=== PATIENT | female | born 1975 | race Caucasian/White ===

== ENCOUNTER → 2017-10-29 16:48 | Outpatient (CLI) | payer OTHER, SELFPAY ==
--- NOTE | 2017-10-29 16:53 | DI.MRI.S_ITS ---
PROCEDURE: MR CERVICAL SPINE WO CON INDICATIONS: CERVICAL SPINE RADICULOPATHY TECHNIQUE: Noncontrast sagittal T1 spin echo and T2 fast spin echo, sagittal STIR, foraminal oblique sagittal T2 fast spin echo, and axial gradient echo or T2 fast spin echo through the cervical spine. COMPARISON: [facility] [place], CR, XR CERVICAL SPINE 2 OR 3 VIEWS, 10/17/2017, 8:39. FINDINGS: Image quality: Excellent. Alignment and Curvature: There is normal bony alignment. There is straightening of normal cervical spine curvature. Bone Marrow: Reactive endplate change is noted adjacent to the C5-C6 disc. Spinal Cord: Visualized spinal cord has normal size and signal. No cerebellar tonsillar herniation. Paraspinous Soft Tissues: No paravertebral masses. Prevertebral soft tissues are normal in thickness. C2-C3: Normal appearance. C3-C4: Normal appearance. C4-C5: Normal appearance. C5-C6: Loss of disc signal and height. Mild, diffuse disc bulge with small central disc protrusion. Moderate narrowing of the central canal. Mild right and moderate left uncovertebral joint hypertrophy. Moderate right and mild left neural foraminal narrowing. No neural impingement. C6-C7: Loss of disc signal. Mild, diffuse disc bulge. Mild narrowing of the central canal. Mild bilateral facet hypertrophy. No neural foraminal narrowing. No neural impingement. C7-T1: Disc is normal in appearance. Mild bilateral facet hypertrophy. IMPRESSION: 1. Moderate C5-C6 degenerative disc disease. Mild C6-C7 degenerative disc disease. 2. Mild bilateral C6-C7 and C7-T1 facet arthropathy. 3. Moderate right and mild left C5-C6 uncovertebral joint hypertrophy. 4. Moderate C5-C6 central canal narrowing. Mild C6-C7 central canal narrowing. 5. Moderate right and mild left C5-C6 neural foraminal narrowing. Dictated by: Merly Schmidt MD, PhD on 10/30/2017 at 12:08 Approved by: Merly Schmidt MD, PhD on 10/30/2017 at 12:20
== END ==
PROVIDERS: Visit Provider Orthopaedic Surgery Orthopaedic Surgery of the Spine
DX: M50.122 Cervical disc disorder at C5-C6 level with radiculopathy (principal); M47.22 Other spondylosis with radiculopathy, cervical region; M47.23 Other spondylosis with radiculopathy, cervicothoracic region; M48.02 Spinal stenosis, cervical region
CPT/HCPCS: 72141

== ENCOUNTER → 2017-12-25 11:00 | Outpatient (CLI) | payer OTHER, SELFPAY | DX: Z23 Encounter for immunization (principal) | CPT/HCPCS: 90471; 90686 ==

== ENCOUNTER → 2018-01-15 13:10 | Outpatient (CLI) | payer OTHER, SELFPAY ==
--- NOTE | 2018-01-15 | DI.RAD.S_ITS ---
PROCEDURE: XR CERVICAL SPINE 1V INDICATIONS: DISC PAIN TECHNIQUE: Single lateral view of the cervical spine acquired. COMPARISON: [facility], MR, MR CERVICAL SPINE WO CON, 10/29/2017, 17:16. [facility] [place], CR, XR CERVICAL SPINE 2 OR 3 VIEWS, 10/17/2017, 8:39. FINDINGS: Bones: No fractures or dislocations to the C7 level. There is discectomy and a disc prosthesis at C5-C6. There is straightening of cervical curvature. The alignment is normal. No suspicious bony lesions. Soft tissues: No prevertebral soft tissue swelling. IMPRESSION: Discectomy and disc prosthesis at C5-C6. There is straightening of cervical curvature but normal alignment. Dictated by: Linette See M.D. on 01/15/2018 at 15:15 Approved by: Linette See M.D. on 01/15/2018 at 15:18
== END ==
PROVIDERS: Visit Provider Neurological Surgery
DX: M50.022 Cervical disc disorder at C5-C6 level with myelopathy (principal)
CPT/HCPCS: 72020

== ENCOUNTER → 2018-01-21 12:39 | Outpatient (CLI) | payer OTHER, SELFPAY ==
--- NOTE | 2018-01-21 13:45 | DI.RAD.S_ITS ---
PROCEDURE: XR CERVICAL SPINE 4V OR 5V INDICATIONS: S/P C5-6 TOTAL DISC REPLACEMENT TECHNIQUE: 5 views of the cervical spine were acquired. COMPARISON: [facility], , XR CERVICAL SPINE 1V, 01/15/2018, 13:20. FINDINGS: Bones: No fractures or dislocations to the C7 level. Postsurgical changes related to C5-C6 prosthetic discs. There is mild narrowing of the C7-T1 disc space as before. Mild diffuse facet arthropathy. Straightening of the normal cervical lordosis. No evidence of abnormal motion with flexion and extension lateral views.. There is no change in hardware alignment. No suspicious bony lesions. Soft tissues: Prevertebral soft tissues are normal in thickness. IMPRESSION: Post surgical changes related C5-C6 prosthetic disc. Straightening of the normal cervical lordosis as before. No evidence of abnormal motion with flexion and extension lateral views. Mild C7-T1 disc degeneration. Dictated by: Kaleb Gonzales M.D. on 01/21/2018 at 15:02 Approved by: Kaelb Gonzales M.D. on 01/21/2018 at 15:06
== END ==
PROVIDERS: Visit Provider Neurological Surgery
DX: M50.022 Cervical disc disorder at C5-C6 level with myelopathy (principal); M50.33 Other cervical disc degeneration, cervicothoracic region
CPT/HCPCS: 72050

== ENCOUNTER → 2018-04-08 13:54 | Outpatient (CLI) | payer OTHER, SELFPAY ==
--- NOTE | 2018-04-08 | DI.RAD.S_ITS ---
PROCEDURE: XR CERVICAL SPINE 4V OR 5V INDICATIONS: NECK PAIN TECHNIQUE: 5 views of the cervical spine were acquired. COMPARISON: [facility], CR, XR CERVICAL SPINE 1V, 01/15/2018, 13:20. [facility], MR, MR CERVICAL SPINE WO CON, 10/29/2017, 17:16. [facility] [place], CR, XR CERVICAL SPINE 2 OR 3 VIEWS, 10/17/2017, 8:39. [facility], CR, XR CERVICAL SPINE 4V OR 5V, 01/21/2018, 13:48. FINDINGS: Bones: No fractures or dislocations to the C7-T1 level. No suspicious bony lesions. There is straightening of normal cervical curvature. Prosthetic intervertebral disc is present at C5-6. Disc is intact without evidence of fracture. There is normal range of motion without dynamic instability. Soft tissues: Prevertebral soft tissues are normal in thickness. IMPRESSION: Prosthetic disc as above. Otherwise, mild cervical straightening. Dictated by: Holli Sweeney M.D. on 04/08/2018 at 16:05 Approved by: Holli Sweeney M.D. on 04/08/2018 at 16:07
== END ==
PROVIDERS: Visit Provider Neurological Surgery
DX: M54.2 Cervicalgia (principal); M46.92 Unspecified inflammatory spondylopathy, cervical region
CPT/HCPCS: 72040

== ENCOUNTER → 2018-08-26 10:18 | Outpatient (CLI) | payer OTHER, SELFPAY ==
--- NOTE | 2018-08-26 10:19 | DI.MG.S_ITS ---
BILATERAL DIGITAL SCREENING MAMMOGRAM 3D/2D WITH CAD: 08/26/2018 CLINICAL: Baseline exam. Routine screening. No prior exams were available for comparison. The tissue of both breasts is heterogeneously dense. This may lower the sensitivity of mammography. Current study was also evaluated with a Computer Aided Detection (CAD) system. There are a regional calcifications in the right breast at 12 o'clock anterior depth. No other significant masses, calcifications, or other findings are seen in either breast. IMPRESSION: INCOMPLETE: NEEDS ADDITIONAL IMAGING EVALUATION The regional calcifications in the right breast are indeterminate. Spot magnification views are recommended. This exam was interpreted at Station ID: [id number]. NOTE: For mammograms, a report in lay terms will be sent to the patient. Approximately 15% of breast malignancies will not be visualized mammographically. In the management of a palpable breast mass, a negative mammogram must not discourage biopsy of a clinically suspicious lesion. Electronically Signed By: Camelia hinojosa/cat:08/26/2018 11:27:40 letter sent: Additional Imaging Needed ACR BI-RADS Category 0: Incomplete 3340F
== END ==
PROVIDERS: PCP Registered Nurse; Visit Provider Registered Nurse
DX: Z12.31 Encounter for screening mammogram for malignant neoplasm of breast (principal)
CPT/HCPCS: 77063; 77067

== ENCOUNTER → 2018-09-17 14:42 | Outpatient (CLI) | payer OTHER, SELFPAY ==
--- NOTE | 2018-09-17 14:44 | DI.US.S_ITS ---
ULTRASOUND OF RIGHT BREAST: 09/17/2018 CLINICAL: Additional evaluation requested from prior study. Comparison is made to exams dated: 09/17/2018 mammogram and 08/26/2018 mammogram - [facility]. Color flow and real-time ultrasound of the right breast were performed. Christie scale images of the real-time examination were reviewed. There is 0.9 cm x 0.6 cm x 0.7 cm oval cyst with a smooth internal wall in the right breast at 11 o'clock anterior depth 3 cm from the nipple. This oval cyst is hypoechoic with internal echoes and no posterior acoustic shadowing or enhancement. Color flow imaging demonstrates that there is no vascularity present. There also is 0.5 cm oval cyst in the right breast at 10:30 o'clock anterior depth 3 cm from the nipple. This oval cyst is hypoechoic with internal echoes. Color flow imaging demonstrates that there is no vascularity present. IMPRESSION: SUSPICIOUS OF MALIGNANCY The 0.9 cm x 0.6 cm x 0.7 cm oval cyst in the right breast at 11 o'clock anterior depth likely represents a complicated cyst or cluster of microcysts, and is probably benign. A follow-up ultrasound in 6 months is recommended. The 0.5 cm oval cyst in the right breast at 10:30 o'clock anterior depth most likely is a complicated cyst and is probably benign. A follow-up ultrasound in 6 months is recommended. Of note, patient had suspicious segmental calcifications in the right breast which stereotactic guided biopsy is recommended. This was discussed with the patient by Dr. See. Patient agreed to proceed with the biopsy. This exam was interpreted at Station ID: [id number]. Electronically Signed By: Michael Youssef M.D. aty/:09/18/2018 08:52:58 letter sent: Biopsy Required Ultrasound BI-RADS: 4 Suspicious abnormality
--- NOTE | 2018-09-17 14:44 | DI.MG.S_ITS ---
UNILATERAL RIGHT DIGITAL DIAGNOSTIC MAMMOGRAM 3D/2D WITH ADDITIONAL VIEWS: 09/17/2018 CLINICAL: Additional evaluation requested from prior study. Comparison is made to exam dated: 08/26/2018 [facility]. The tissue of right breast is heterogeneously dense. This may lower the sensitivity of mammography. There is 0.5 cm equal density focal asymmetry in the right breast central to the nipple anterior depth. There also are a regional coarse heterogeneous calcifications in the right breast at 11 o'clock anterior depth. No other significant masses or calcifications are seen in the breast. IMPRESSION: INCOMPLETE: NEEDS ADDITIONAL IMAGING EVALUATION The 0.5 cm equal density focal asymmetry in the right breast central to the nipple anterior depth is indeterminate. An ultrasound is recommended which is scheduled to immediately follow this examination. The regional coarse heterogeneous calcifications in the right breast at 11 o'clock anterior depth are at a low suspicion for malignancy. A stereotactic biopsy is recommended. This exam was interpreted at Station ID: [id number]. NOTE: For mammograms, a report in lay terms will be sent to the patient. Approximately 15% of breast malignancies will not be visualized mammographically. In the management of a palpable breast mass, a negative mammogram must not discourage biopsy of a clinically suspicious lesion. Electronically Signed By: Michael Youssef M.D. aty/:09/17/2018 16:26:43 ACR BI-RADS Category 0: Incomplete 3340F
== END ==
PROVIDERS: PCP Registered Nurse; Visit Provider Registered Nurse
DX: R92.8 Other abnormal and inconclusive findings on diagnostic imaging of breast (principal); R92.1 Mammographic calcification found on diagnostic imaging of breast; N60.01 Solitary cyst of right breast
CPT/HCPCS: 76642; 77065; G0279

== ENCOUNTER → 2022-05-26 14:16 | Outpatient (CLI) | payer OTHER, SELFPAY ==
--- NOTE | 2022-05-26 | DI.MG.S_ITS ---
BILATERAL DIGITAL SCREENING MAMMOGRAM 3D/2D WITH CAD: 05/26/2022 CLINICAL: Routine screening. Comparison is made to exams dated: 08/26/2018 mammogram and 09/17/2018 mammogram - [facility]. Both breasts are heterogeneously dense, which may obscure small masses (category c / 51-75% glandular tissue). Current study was also evaluated with a Computer Aided Detection (CAD) system. There are benign calcifications in the right breast. There also is a biopsy clip in the right breast. No significant masses, calcifications, or other findings are seen in either breast. There has been no significant interval change. IMPRESSION: BENIGN There is no mammographic evidence of malignancy. A 1 year screening mammogram is recommended. Based on the Tyrer Cuzick model (a risk assessment model) the patient's lifetime risk is 14.2% and her 10 year risk is 2.5%. According to the ACR, ACS, and NCCN guidelines, an annual breast MRI exam along with mammogram is recommended if the patient's lifetime risk is 20% or greater. This exam was interpreted at Station ID: [id number]. NOTE: For mammograms, a report in lay terms will be sent to the patient. Approximately 15% of breast malignancies will not be visualized mammographically. In the management of a palpable breast mass, a negative mammogram must not discourage biopsy of a clinically suspicious lesion. Electronically Signed By: Caridad kumar/cat:05/26/2022 17:50:39 letter sent: Normal Exam ACR BI-RADS Category 2: Benign Finding(s) 3342F
== END ==
PROVIDERS: PCP Registered Nurse Diabetes Educator; Referring Provider Registered Nurse Diabetes Educator; Visit Provider Registered Nurse Diabetes Educator
DX: Z12.31 Encounter for screening mammogram for malignant neoplasm of breast (principal)
CPT/HCPCS: 77063; 77067

== ENCOUNTER → 2022-05-29 07:58 | Outpatient (CLI) | payer OTHER, SELFPAY ==
[2022-05-29 08:37] LABS: Hematocrit 41.6 % (36-46); Hemoglobin 14.6 g/dL (12.0-16.0); Mean Corpuscular HGB Conc 35.1 % (30-36); Mean Corpuscular Volume 85.6 fL (80-100); Platelet Count 256 X10^3/uL (150-400); Red Blood Cell Count 4.86 X10^6/uL (4.0-5.2); Red Cell Distribution Width 12.1 % (11.6-14.8); White Blood Cell Count 4.7 X10^3/uL (4.5-11.0)
[2022-05-29 10:20] LABS: Alanine Aminotransferase 79 IU/L (<35); Albumin 4.1 g/dL (3.5-5.0); Albumin Globulin Ratio 1.5 (1.0-2.8); Alkaline Phosphatase 92 U/L (38-126); Aspartate Aminotransferase 51 IU/L (14-36); BUN Creatinine Ratio 14.7 (6-22); Bilirubin Total 0.5 mg/dL (0.2-1.3); Blood Urea Nitrogen 11 mg/dL (7-17); Calcium 9.1 mg/dL (8.4-10.2); Carbon Dioxide 28 mmol/L (22-32); Chloride 103 mmol/L (98-107); Cholesterol 204 mg/dL (140-199); Estimated Glomerular Filt Rate > 60 mL/min (>60); Globulin 2.8 g/dL (1.7-4.1); Glucose 92 mg/dL (70-100); HDL Cholesterol 64 mg/dL (40-60); HEMOLYSIS < 15 (0-50); LDL Cholesterol Calculated 121 mg/dL (<100); Potassium 4.4 mmol/L (3.4-5.1); Sodium 137 mmol/L (137-145); Total Protein 6.9 g/dL (6.3-8.2); Triglycerides 96 mg/dL (35-150)
[2022-05-29 10:34] LABS: Follicle Stimulating Hormone 50.8 mIU/mL
[2022-05-30 05:14] LABS: TSH w/ Reflex to FT4 3.34 uIU/mL (0.47-4.68)
[2022-05-30 07:22] LABS: Interpretation Negative (Negative)
[2022-05-30 21:07] LABS: Deamidated Gliadin Ab IgA 13 units (0-19); Deamidated Gliadin Ab IgG 3 units (0-19); Immunoglobulin A,Qn 182 mg/dL (87-352); t-Transglutaminase IgA 2 U/mL (0-3)
[2022-05-31 21:28] LABS: Almond IgE 0.17 kU/L (Class 0/I); Cashew Nut IgE <0.10 kU/L (Class 0); Codfish Allergy IgE < 0.10 kU/L (Class 0); Egg White IgE 0.44 kU/L (Class I); Hazelnut IgE 9.74 kU/L (Class IV); Peanut IgE 0.25 kU/L (Class 0/I); Salmon Allergy IgE < 0.10 kU/L (Class 0); Scallop Allergy IgE < 0.10 kU/L (Class 0); Sesame seed Allergy IgE 0.23 kU/L (Class 0/I); Soybean IgE 0.14 kU/L (Class 0/I); Tuna Allergy IgE < 0.10 kU/L (Class 0); Walnut IgE 0.11 kU/L (Class 0/I); Wheat Allergy IgE 0.52 kU/L (Class I)
== END ==
PROVIDERS: PCP Registered Nurse Diabetes Educator; Referring Provider Registered Nurse Diabetes Educator; Visit Provider Registered Nurse Diabetes Educator
DX: R14.0 Abdominal distension (gaseous) (principal); R14.2 Eructation; R23.2 Flushing; R45.4 Irritability and anger
CPT/HCPCS: 36415; 80053; 80061; 82784; 83001; 83013; 83516; 84443; 85027; 86003

== ENCOUNTER → 2022-08-14 13:51 | Outpatient (CLI) | payer OTHER, SELFPAY ==
[2022-08-15 07:36] LABS: Immunoglobulin A 170 mg/dL (87-352)
[2022-08-15 18:08] LABS: t-Transglutaminase IgA 3 U/mL (0-3)
[2022-08-16 13:39] LABS: Anti Gliadin IgG Ab 4 units (0-19); Gliadin Gluten IgA 26 units (0-19)
== END ==
PROVIDERS: PCP Registered Nurse Diabetes Educator; Referring Provider Physician Assistant; Visit Provider Physician Assistant
DX: R19.7 Diarrhea, unspecified (principal)
CPT/HCPCS: 36415; 82784; 83516

== ENCOUNTER → 2023-06-24 10:11 | Outpatient (CLI) | payer OTHER, SELFPAY ==
--- NOTE | 2023-06-24 10:14 | DI.RAD.S_ITS ---
PROCEDURE: XR CHEST 2V INDICATIONS: Cough TECHNIQUE: 2 views of the chest were acquired. COMPARISON: None. FINDINGS: Surgical changes and devices: None. Lungs and pleura: Right upper lobe consolidation abutting the minor fissure. No pleural effusions or pneumothorax. Mediastinum: Mediastinal contours are normal. Heart size is normal. Bones and chest wall: No suspicious bony abnormalities. Soft tissues appear unremarkable. IMPRESSION: Right upper lobe pneumonia. Dictated by: Sha Mendez M.D. on 06/24/2023 at 13:09 Approved by: Sha Mendez M.D. on 06/24/2023 at 13:10
== END ==
LOC: RAD 10:13
PROVIDERS: PCP Registered Nurse Diabetes Educator; Referring Provider Nurse Practitioner Family; Visit Provider Nurse Practitioner Family
DX: R05.9 Cough, unspecified (principal); J18.9 Pneumonia, unspecified organism
CPT/HCPCS: 71046

== ENCOUNTER → 2023-07-10 07:53 | Outpatient (CLI) | payer OTHER, SELFPAY ==
--- NOTE | 2023-07-10 07:54 | DI.RAD.S_ITS ---
PROCEDURE: XR CHEST 2V INDICATIONS: Follow up Right upper lobe pneumonia TECHNIQUE: 2 views of the chest were acquired. COMPARISON: [facility], CR, XR CHEST 2V, 06/24/2023, 10:29. FINDINGS: Surgical changes and devices: None. Lungs and pleura: Lungs are clear. No pleural effusions or pneumothorax. Mediastinum: Mediastinal contours are normal. Heart size is normal. Bones and chest wall: No suspicious bony abnormalities. Soft tissues appear unremarkable. IMPRESSION: No acute pulmonary process. Dictated by: Holli Sweeney M.D. on 07/10/2023 at 8:32 Approved by: Holli Sweeney M.D. on 07/10/2023 at 8:33
== END ==
PROVIDERS: PCP Registered Nurse Diabetes Educator; Referring Provider Physician Assistant; Visit Provider Physician Assistant
DX: J18.9 Pneumonia, unspecified organism (principal)
CPT/HCPCS: 71046

== ENCOUNTER → 2023-09-28 07:50 | Outpatient (CLI) | payer OTHER, SELFPAY ==
--- NOTE | 2023-09-28 07:50 | DI.MG.S_ITS ---
BILATERAL DIGITAL SCREENING MAMMOGRAM 3D/2D WITH CAD: 09/28/2023 CLINICAL: Routine screening. Family history of breast cancer. Comparison is made to exams dated: 05/26/2022 mammogram and 08/26/2018 mammogram - [facility]. Both breasts are heterogeneously dense, which may obscure small masses (category c / 51-75% glandular tissue). Current study was also evaluated with a Computer Aided Detection (CAD) system. There are benign calcifications in the right breast. There also is a biopsy clip in the right breast. No significant masses, calcifications, or other findings are seen in either breast. There has been no significant interval change. IMPRESSION: BENIGN There is no mammographic evidence of malignancy. A 1 year screening mammogram is recommended. Based on Tyrer-Cuzick model (a risk assessment model), the patient's lifetime risk is 22.4% and her 10 year risk is 4.4%. If a patient has an elevated risk, a more comprehensive evaluation should be considered and/or a referral to a genetic counselor. The [employer], [employer], and NCCN Guidelines advise the consideration of Breast MRI as an adjunct to screening mammography in patients whose Lifetime risk to develop breast cancer is 20% or higher. This exam was interpreted at Station ID: [id number]. NOTE: For mammograms, a report in lay terms will be sent to the patient. Approximately 15% of breast malignancies will not be visualized mammographically. In the management of a palpable breast mass, a negative mammogram must not discourage biopsy of a clinically suspicious lesion. Electronically Signed By: Skyler avalos/cat:09/28/2023 12:08:04 letter sent: Normal Exam ACR BI-RADS Category 2: Benign Finding(s) 3342F
== END ==
PROVIDERS: PCP Registered Nurse Diabetes Educator; Referring Provider Registered Nurse Diabetes Educator; Visit Provider Registered Nurse Diabetes Educator
DX: Z12.31 Encounter for screening mammogram for malignant neoplasm of breast (principal); Z80.3 Family history of malignant neoplasm of breast; R92.333 Mammographic heterogeneous density, bilateral breasts
CPT/HCPCS: 77063; 77067

== ENCOUNTER 2023-12-18 08:33 | Day surgery (SDC) | payer OTHER, SELFPAY ==
[2023-12-18 08:55] VITALS: BP 155/99; PULSE 80; RESP 16; TEMP 36.4; O2SAT 99
--- NOTE | 2023-12-18 09:08 | P.HP_ITS ---
History of Present Illness History of Present Illness Date Patient Seen: 12/18/23 Time Patient Seen: 09:08 Chief complaint: Colonoscopy Narrative: Colon cancer screening. No family history. No current symptoms except for glucose intolerance. [facility] Surgical History Anesthesia S/P tonsillectomy (~08/2012) Sprain, knee, anterior cruciate ligament (~01/2013) Status post cervical disc replacement (01/06/18) Family History Father Heart disease Hyperlipidemia Mother Hypertension Brother No problems noted. Grandfather Hypertension Grandmother Heart disease Grandfather Cancer Grandmother Heart disease Son No problems noted. Daughter No problems noted. Social History marital status: number of children: 2 household members: spouse and children lives independently: Yes caregiver/support person: No housing: house pets and animals: No education level: master's degree leisure activities: other (hiking, swimming) seatbelt use: always helmet use: Yes water heater temp set < 120 deg: Yes working smoke detector in home: Yes fire extinguisher in home: Yes carbon monox detector in home: Yes firearms in home: Yes do you feel safe at home: Yes Smoking Status: Never smoker alcohol intake: current substance use type: does not use during the past year weight has: remained stable well-balanced diet: daily or most days daily servings fruits/ve or more times/day caffeine: Yes eating out: 1-3 times/week Type(s) of exercise: walking, bicycling and swimming frequency: 5-6 times per week duration: 45-60 minutes/day Meds Home Medications and Allergies Home Medications Medication Instructions Recorded Confirmed Type levonorgestrel 21 mcg/24 hr (up to intrauterine 08/09/18 07/03/23 History 8 years) 52 mg intrauterine device (Mirena) albuterol sulfate 90 mcg/actuation 2 puff inhalation Q4-6H PRN 07/03/23 12/18/23 Rx aerosol inhaler shortness of breath or wheezing #8.5 grams fluticasone propionate 110 1 puff inhalation BID #12 grams 07/03/23 12/18/23 Rx mcg/actuation HFA aerosol inhaler inhalational spacing device #1 ea 07/03/23 07/03/23 Rx (BreatheRite MDI Spacer) peg 3350-sod sulf,pbyyd-rwd-rov 1,000 ml PO DIRECTED #2,000 mL 11/08/23 Rx 178.7-7.3-0.5-1.12-0.9 gram oral soln (Suflave) Allergies Allergy/AdvReac Type Severity Reaction Status Date / Time No Known Drug Allergies Allergy Verified 12/18/23 08:52 Review of Systems Review of Systems ROS: Yes All systems reviewed with the patient and are negative except as otherwise documented Exam Vital Signs (past 8 hours): - 12/18/23 08:55 Temperature 97.6 F Pulse Rate 80 Respiratory Rate 16 Blood Pressure 155/99 H Pulse Oximetry 99 Oxygen Delivery Method Room Air Oxygen Delivery Method Room Air Const General: cooperative, healthy appearing and comfortable Nutritional Appearance: average body habitus Orientation: alert, awake and oriented x3 [facility] Head: normocephalic and atraumatic Ears: hearing grossly normal bilaterally Eyes Periorbital: periorbital findings normal Sclera: sclerae normal Neck Neck: trachea midline and No JVD Chest Chest: normal inspection of the chest Resp Effort & Inspection: normal respiratory effort and able to speak in complete sentences Cardio Rate: regular rate Rhythm: regular rhythm GI Palpation: soft Skin General: turgor normal and No atrophy Neuro General: patient alert, patient awake and patient oriented x3 Cognition: normal cognition Psych Appearance: grossly normal Mental Status: mental status grossly normal Judgment: judgment good Assessment & Plan Assessment & Plan narrative: colon cancer screening with colonoscopy under anesthesia Time-Based Coding :: [TOTAL MINUTES] spent with patient and on the chart (including review of chart, obtaining history, exam, reviewing outside data, placing orders, documenting exam and treatment plan, and counseling patient) on [DATE].
[2023-12-18 09:38] VITALS: BP 108/74; PULSE 75; RESP 16; TEMP 36.4; O2SAT 94
--- NOTE | 2023-12-18 09:39 | PM.OP.COLON ---
Operative Date/Time/Diagnoses Date of procedure: 12/18/23 Time of procedure: 09:39 Pre-op diagnosis: Colon cancer screening Post-op diagnosis: same Procedure & Clinicians Study performed: Colonoscopy with anesthesia Same procedure as scheduled: Yes Indications: Colon cancer screening Surgeon: Laura Lo Procedure Notes Procedure in detail: Preop diagnosis: Colon cancer screening Postop diagnosis: Same Operative procedure: Colonoscopy with anesthesia Surgeon: Cheryl Lo MD Findings: Normal colonoscopy. No diverticulosis, no polyps Procedure: Patient placed in lateral position. Rectal exam performed showing normal tone no masses. Colonoscope was inserted into the rectum and advanced to ileocecal valve with minimal difficulty. Insufflation extraction of the scope including retroflex in the rectum had the above findings. Impression: Normal colonoscopy. No polyps, no diverticulosis Plan: Repeat colonoscopy in 10 years unless otherwise indicated by change in clinical condition Specimen(s): none sent Complications: none Post-procedure Recommendations: Colonoscopy in 10 years Follow up: as needed Disposition: PACU
[2023-12-18 09:44] VITALS: BP 103/67; PULSE 81; RESP 15; TEMP 36.4; O2SAT 95
[2023-12-18 09:51] VITALS: BP 134/91; PULSE 66; RESP 18; TEMP 36.4; O2SAT 96
== END 2023-12-18 10:04 | disposition home or self-care (01) ==
PROVIDERS: Surgery; PCP Registered Nurse Diabetes Educator; Referring Provider Surgery; Visit Provider Surgery
PROC: 0DJD8ZZ Inspection of Lower Intestinal Tract, Via Natural or Artificial Opening Endoscopic (ICD-10-PCS; CPT 45378; principal; 2023-12-18 09:45)
DX: Z12.11 Encounter for screening for malignant neoplasm of colon (principal)
CPT/HCPCS: 45378; J2704

== ENCOUNTER → 2024-03-21 07:47 | Outpatient (CLI) | payer OTHER, SELFPAY ==
--- NOTE | 2024-03-21 07:50 | DI.MRI.S_ITS ---
SCREENING BREAST MRI OF BOTH BREASTS: 03/21/2024 CLINICAL: High risk screening. PROCEDURE: MR BREAST BI WO/W CON INDICATIONS: follow up after Mammogram TECHNIQUE: The patient was placed prone in a dedicated breast imaging coil. Precontrast axial STIR and 3D FLASH without fat saturation sequences were obtained. Both before and after bolus injection of contrast, sequential 1-minute axial 3D FLASH with fat saturation sequences for 3 time points, with subtraction images and maximum intensity projections (MIP's) generated. Delayed sagittal FLASH images with fat saturation were also obtained. CONTRAST: 20 cc Prohance. Computer-aided detection, including computer algorithm analysis of MRI image data for lesion detection and characterization, pharmacokinetic analysis, with further physician review for interpretation, was performed. COMPARISON: [facility], MG, MM SCREENING MAMMO BI, 09/28/2023, 8:09. MG, MM SCREENING MAMMO BI, 05/26/2022, 14:25. MG, MG STEREOTACTIC BREAST BIOPSY RIGHT, 09/19/2018, 11:06. MG, MG BREAST SPECIMEN RIGHT, 09/19/2018, 10:06. MG, MM SCREENING MAMMO BI, 08/26/2018, 10:34. FINDINGS: Image quality: Excellent. There is mild background parenchymal enhancement. Right breast: No mass or suspicious enhancement. Cysts or lymph node with intrinsic T1 hyperintense signal measuring 1.5 cm in the lateral breast. Seen on prior mammogram. No suspicious enhancement. Left breast: No mass or suspicious enhancement. Miscellaneous: No enlarged lymph nodes. IMPRESSION: BENIGN No mass or suspicious enhancement. No enlarged lymph nodes. BIRADS 2 A 1 year screening mammogram is recommended. 09/28/2024. Recommend continued screening breast MRI. COMMENT: The imaging literature indicates that a negative contrast breast MRI examination has a high sensitivity and a moderate specificity for detecting and excluding invasive carcinomas to a detection threshold of 3-5 mm; nonetheless, appropriate clinical and mammographic follow-up are recommended. MRI is not sensitive for detecting DCIS (ductal carcinoma in situ) and may not detect large invasive neoplasms that show only minimal enhancement such as mucinous carcinoma. If there are suspicious calcifications or clinically worrisome palpable masses, then biopsy should still be considered. Invasive neoplasms can be hidden by co-existent and benign enhancement caused by mastitis, hormone therapy effects, radiation therapy, , and recent biopsy or surgery. False positive examinations can occur in a number of circumstances, including breasts that have recently been subject to invasive procedures and those that contain atypical ductal hyperplasia, hormonally stimulated glandular tissue, fat necrosis, or radial scars. Dictated by: Skyler Linton M.D. on 03/21/2024 at 16:27 This exam was interpreted at Station ID: [id number]. Electronically Signed By: Skyler Linton M.D. slc/:03/21/2024 16:43:13 letter sent: Normal Exam ACR BI-RADS Category 2: Benign
== END ==
LOC: MRI 07:49
PROVIDERS: PCP Registered Nurse Diabetes Educator; Referring Provider Registered Nurse Diabetes Educator; Visit Provider Registered Nurse Diabetes Educator
DX: Z12.39 Encounter for other screening for malignant neoplasm of breast (principal)
CPT/HCPCS: 77049; A9579

== ENCOUNTER → 2024-06-19 07:37 | Outpatient (CLI) | payer OTHER, SELFPAY ==
[2024-06-19 08:06] LABS: Hematocrit 41.2 % (36-46); Hemoglobin 14.3 g/dL (12.0-16.0); Mean Corpuscular HGB Conc 34.8 % (30-36); Mean Corpuscular Hemoglobin 29.8 PG (26-34); Mean Corpuscular Volume 85.7 fL (80-100); Platelet Count 255 X10^3/uL (150-400); Red Blood Cell Count 4.81 X10^6/uL (4.0-5.2); Red Cell Distribution Width 11.9 % (11.6-14.8); White Blood Cell Count 6.3 X10^3/uL (4.5-11.0)
[2024-06-19 08:32] LABS: Alanine Aminotransferase 68 IU/L (<35); Albumin 4.3 g/dL (3.5-5.0); Albumin Globulin Ratio 1.6 (1.0-2.8); Alkaline Phosphatase 94 U/L (38-126); Aspartate Aminotransferase 40 IU/L (14-36); BUN Creatinine Ratio 15.2 (6-22); Bilirubin Total 0.7 mg/dL (0.2-1.3); Blood Urea Nitrogen 12 mg/dL (7-17); Calcium 9.3 mg/dL (8.4-10.2); Carbon Dioxide 26 mmol/L (22-32); Chloride 106 mmol/L (98-107); Cholesterol 239 mg/dL (140-199); Estimated Glomerular Filt Rate > 60 mL/min (>60); Globulin 2.7 g/dL (1.7-4.1); Glucose 94 mg/dL (70-100); HDL Cholesterol 61 mg/dL (40-60); HEMOLYSIS < 15 (0-50); LDL Cholesterol Calculated 155 mg/dL (<100); Potassium 4.1 mmol/L (3.4-5.1); Sodium 139 mmol/L (137-145); Triglycerides 116 mg/dL (35-150)
[2024-06-19 08:47] LABS: Follicle Stimulating Hormone 53.4 mIU/mL
[2024-06-19 09:00] LABS: Thyroid Stimulating Hormone 2.62 uIU/mL (0.47-4.68)
== END ==
PROVIDERS: PCP Student in an Organized Health Care Education/Training Program; Referring Provider Student in an Organized Health Care Education/Training Program; Visit Provider Student in an Organized Health Care Education/Training Program
DX: R63.5 Abnormal weight gain (principal); N95.1 Menopausal and female climacteric states; R53.83 Other fatigue
CPT/HCPCS: 36415; 80053; 80061; 83001; 84443; 85027

== ENCOUNTER → 2025-01-02 08:07 | Outpatient (CLI) | payer OTHER, SELFPAY ==
[2025-01-02 08:49] LABS: Alanine Aminotransferase 34 IU/L (<35); Albumin 4.6 g/dL (3.5-5.0); Albumin Globulin Ratio 1.6 (1.0-2.8); Alkaline Phosphatase 74 U/L (38-126); Blood Urea Nitrogen 20 mg/dL (7-17); Calcium 10.0 mg/dL (8.4-10.2); Carbon Dioxide 29 mmol/L (22-32); Chloride 104 mmol/L (98-107); Cholesterol 226 mg/dL (140-199); Estimated Glomerular Filt Rate > 60 mL/min (>60); Globulin 2.8 g/dL (1.7-4.1); Glucose 112 mg/dL (70-99); HDL Cholesterol 55 mg/dL (40-60); HEMOLYSIS < 15 (0-50); Potassium 4.3 mmol/L (3.4-5.1); Sodium 137 mmol/L (137-145); Total Protein 7.4 g/dL (6.3-8.2); Triglycerides 126 mg/dL (35-150)
== END ==
PROVIDERS: PCP Student in an Organized Health Care Education/Training Program; Referring Provider Student in an Organized Health Care Education/Training Program; Visit Provider Student in an Organized Health Care Education/Training Program
DX: R74.8 Abnormal levels of other serum enzymes (principal)
CPT/HCPCS: 36415; 80053; 80061

== ENCOUNTER → 2025-01-13 16:08 | Outpatient (CLI) | payer OTHER, SELFPAY ==
--- NOTE | 2025-01-13 16:09 | DI.US.S_ITS ---
PROCEDURE: US EXTREMITY NONVASC LOWER LT
== END ==
LOC: US 16:08
PROVIDERS: PCP Student in an Organized Health Care Education/Training Program; Referring Provider Student in an Organized Health Care Education/Training Program; Visit Provider Student in an Organized Health Care Education/Training Program
DX: R22.42 Localized swelling, mass and lump, left lower limb (principal)
CPT/HCPCS: 76882

== ENCOUNTER → 2025-02-12 08:16 | Outpatient (CLI) | payer OTHER, SELFPAY ==
--- NOTE | 2025-02-12 08:17 | DI.MG.S_ITS ---
MM screening mammo BI: 02/12/2025. BI-RADS: 2 CLINICAL: 49-year old female for bilateral screening mammogram. Tyrer-Cuzick lifetime risk of 28.8%. No personal or first-degree family history of breast cancer. Current reported family history of breast cancer: maternal aunt and second maternal aunt. The patient had a prior right breast biopsy. PRIOR EXAMS 09/28/2023, 05/26/2022, 09/19/2018, MAMMOGRAPHY TECHNIQUE: 2D and 3D (tomosynthesis) digital mammographic views obtained, with additional images as needed for full coverage. Current study was also evaluated with a Computer Aided Detection (CAD) system. DENSITY C. The breasts are heterogeneously dense, which may obscure small masses. MAMMOGRAPHY FINDINGS Right: Biopsy marker present on the right. There are no suspicious masses, calcifications, or other findings in the breast. Left: No suspicious mass, asymmetry, microcalcification, or other abnormality seen. IMPRESSION: Right * No evidence of malignancy with benign findings. Left * No evidence of malignancy. RECOMMENDATIONS Bilateral * According to the Tyrer-Cuzick Risk Assessment Model, based on the information provided your patient has a greater than 20% lifetime risk for developing breast cancer. Consider supplemental screening with breast MRI and participation in a high risk screening program. * Annual screening mammography. OVERALL ASSESSMENT CATEGORY BI-RADS-2: Benign. [employer] recommends annual screening mammography beginning at age 40 for women with average risk of breast cancer. ELECTRONICALLY SIGNED: Heather Tao M.D. on 02/16/2025 at 11:31:41 AM PT Interpreting Station ID: [id number]
== END ==
PROVIDERS: PCP Student in an Organized Health Care Education/Training Program; Referring Provider Student in an Organized Health Care Education/Training Program; Visit Provider Student in an Organized Health Care Education/Training Program
DX: Z12.31 Encounter for screening mammogram for malignant neoplasm of breast (principal); R92.333 Mammographic heterogeneous density, bilateral breasts; Z80.3 Family history of malignant neoplasm of breast
CPT/HCPCS: 77063; 77067